=== PATIENT | female | born 1970 | race Caucasian/White ===

== ENCOUNTER 2017-01-21 08:52 | Outpatient (CLI) | payer BC ==
[~2017-01-21 08:52] MED LIST: DICLOFENAC SODI75 MG PO; NORCO1 TA2 PO
--- NOTE | 2017-01-21 10:08 | DIAGNOSTIC IMAGING REPORT ---
PROCEDURE: US SOFT TISSUE THYR/NECK/HEAD INDICATION: NECK SWELLING TECHNIQUE: Olivares scale and color Doppler sonographic images of the thyroid gland were obtained. COMPARISON: None. FINDINGS: RIGHT LOBE: Measures 6.3 x 3.4 x 3.6 cm. It is inhomogeneous and hyperemic. No focal nodules. LEFT LOBE: Measures 5.9 x 2.8 x 3 cm. It is inhomogeneous and hyperemic. No focal nodules. ISTHMUS: Measures 1 cm in diameter. IMPRESSION: 1. Enlarged heterogeneous thyroid gland with hyperemia suggestive of thyroiditis. 2. Results discussed with Blayne Valderrama
== END 2017-01-21 23:00 ==
LOC: US SRH 08:52
DX: E07.9 Disorder of thyroid, unspecified (principal)

== ENCOUNTER 2017-06-04 16:59 | Emergency (ER) | payer BC ==
--- NOTE | 2017-06-04 17:40 | DIAGNOSTIC IMAGING REPORT ---
PROCEDURE: XR SOFT TISSUE NECK INDICATION: PAIN TECHNIQUE: Two views of the neck for soft tissues. COMPARISON: None. FINDINGS: Soft tissue swelling in the region of the thyroid. Epiglottis appears normal. The adenoids and tonsils appear normal. Patent airway. Trachea appears midline. No unusual radiodensities. The visible cervical spine appears intact with mild degenerative changes. IMPRESSION: 1. Soft tissue swelling in the region of the thyroid.
--- NOTE | 2017-06-04 18:18 | DIAGNOSTIC IMAGING REPORT ---
PROCEDURE: US SOFT TISSUE THYR/NECK/HEAD INDICATION: Enlarged thyroid. Reported history of thyroiditis. Difficulty breathing. TECHNIQUE: Olivares scale and color Doppler sonographic images of the thyroid gland were obtained. COMPARISON: Comparison made to thyroid ultrasound on 01/21/2017. And a findings of colon FINDINGS: RIGHT LOBE: There is persistent marked enlargement of the right lobe of the thyroid gland (6.3 x 3.6 x 3.2 cm) with heterogeneous appearance and increased vascularity. LEFT LOBE: There is persistent marked enlargement of the left lobe of thyroid gland (5.6 x 2.5 x 2.7 cm) with heterogeneous appearance and increased vascularity. ISTHMUS: Marked enlargement of the isthmus (0.9 cm). IMPRESSION: 1. No significant change in marked enlargement of the thyroid gland with increased vascularity. Findings are most compatible with thyroiditis (appears chronic). 2. Findings discussed with LUCY Polk.
--- NOTE | 2017-06-04 19:29 | DIAGNOSTIC IMAGING REPORT ---
PROCEDURE: CT SOFT TISSUE NECK WITH CONT INDICATION: Pain and difficulty breathing. TECHNIQUE: 125 ml of Isovue 300 injected intravenously and axial images were obtained from the skull base through the upper mediastinum with sagittal and coronal reformations. In addition, angled axial oblique images were obtained (avoiding dental hardware). COMPARISON: Ultrasound soft tissue neck 06/04/2017. FINDINGS: Enlarged right thyroid lobe (5.8 x 4.3 x 2.7 cm) and left thyroid lobe (6.2 x 3.9 x 2.3 cm). Thyroid gland is heterogeneous with calcified nodules in the thyroid isthmus and left lobe. Normal airway without narrowing. Parotid and submandibular glands are normal. No adenopathy. Lung apices are clear. Mastoids and visualized moderate degenerative changes of the spine. paranasal sinuses are clear. IMPRESSION: 1. Goiter 2. Normal airway 3. Results discussed with LUCY Aguilar All CT scans at this facility use dose modulation, iterative reconstruction, and/or weight-based dosing when appropriate to reduce radiation dose to as low as reasonably achievable.
--- NOTE | 2017-06-04 19:34 | ED ORDER SUMMARY ---
..... Patient: KATERINA LARA OrderSheet [facility] VisitID: [id number] [place] [address] 47y, F Registration Date/Time: 06/04/2017 ORDER SHEET Weight: 81.6 kg (stated) Allergies: None GENERAL ORDERS: US Soft Tissue Thyroid/Neck/Head Urgent (17:15 06/04/2017 EKoroleva P.A.-C) (Ack 17:38 OHeitannandez) (18:46 KPage-Kuchan R.N.) Soft Tissue Neck Urgent (17:15 06/04/2017 EKoroleva P.A.-C) (Ack 17:38 OHeitannandez) (18:46 KPage-Kuchan R.N.) - (t3) (18:05 06/04/2017 EKoroleva P.A.-C) (18:21 JBoardley R.N.) (Cancelled: Other18:23 EKoroleva P.A.-C) CBC w Diff Urgent (18:05 06/04/2017 EKoroleva P.A.-C) (Ack 18:07 Erikanandez) (18:21 JBoardley R.N.) TSH Urgent (18:05 06/04/2017 EKoroleva P.A.-C) (Ack 18:07 Erikanandez) (18:21 JBoardley R.N.) CT Soft Tissue Neck w Cont (No) (see lab) Urgent (18:12 06/04/2017 EKoroleva P.A.-C) (Ack 18:24 Erikanandez) (19:30 MCampbell) FT4(Free T4) Urgent (18:23 06/04/2017 EKoroleva P.A.-C) (Ack 18:24 OHeitannandez) (18:28 JBoardley R.N.) Vitals (18:32 06/04/2017 EKoroleva P.A.-C) (18:33 KPage-Kuchan R.N.) Monoscreen Urgent (18:32 06/04/2017 EKoroleva P.A.-C) (Ack 18:42 OHvalentino) Vitals (18:34 06/04/2017 Larry Romero) (18:43 Lori Dhaliwal) MEDICATION ORDERS: IV FLUIDS: IV Saline Lock (18:21 06/04/2017 Jose R Dhaliwal verbal order read back to Larry Romero) (18:26 Jose R Dhaliwal) ORDER SHEET NOTES: [Electronically signed by Marilyn Marina P.A.-C (20:03 06/04/2017)] [Electronically signed by Larissa Maciel R.N. (07:23 06/06/2017)] [Electronically locked/signed by Larissa Maciel R.N. (07:23 06/06/2017)]
--- NOTE | 2017-06-04 19:34 | ED NURSING NOTES ---
Clinical Report - Nurses [facility] [address] [place] [address] 06/04/2017 17:01 Patient: KATERINA LARA TRIAGE Triage time 17:Jun 04 2017. Chief Complaint: SORE THROAT and (pt with known goiters, scheduled for US tomorrow per Dr Baer- has increased swelling to right side of neck/throat making it difficult to swallow , pt speaking full clear sentences, clears oral secretions). Alert. No acute distress. SEPSIS SCREEN: Sepsis Screen. Negative (no infection suspected/documented). --17:08 Larissa Maciel R.N. 17:04 06/04/17. BP: 129/87. HR: 77. RR: 17. O2 saturation: 99%. Temp: 98.4 F. Pain level now: 06/09. --17:08 Larissa Maciel R.N. Weight: 81.6 kg stated. Height/Length: 68 inches Per Patient. BMI: 27.4. --17:06 Larissa Maciel R.N. Medications Vicodin Oral. --17:06 Larissa Maciel R.N. Levothyroxine Sodium Oral (Tablet 125 mcg), daily. --18:04 Larissa Maciel R.N. Medication/allergy information source: the patient. --17:08 Larissa Maciel R.N. Allergies None. --17:06 Larissa Maciel R.N. History Arrived by private vehicle. Historian: patient. Onset. (ongoing x 4 months). She has had a headache. 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 (vicodin). PAST MEDICAL HX: Immunizations: up-to-date. Last normal menstrual period- May. SOCIAL HX: Smoker- current status unknown (cigarette). No alcohol use or drug use. No infectious disease exposure. ABUSE ASSESSMENT: No report of abuse. SELF HARM ASSESSMENT: A self harm assessment was performed. The patient answered "no" to the question "Do you have thoughts of harming or killing yourself?". FALL RISK ASSESSMENT: Fall risk assessment completed. No fall risk identified. NUTRITIONAL RISK ASSESSMENT: The nutritional risk assessment revealed no deficiencies. FUNCTIONAL ASSESSMENT: Functional assessment: no impairments noted. LEARNING NEEDS ASSESSMENT: The learning needs assessment revealed no barriers. SKIN INTEGRITY ASSESSMENT: Skin integrity risk assessment completed. No skin integrity risk identified. --17:08 Larissa Maciel R.N. PROBLEMS: Hypokalemia. Sciatica. Back Pain. Hypovolemia. Syncope. Colitis. Vaginal Bleeding. Immunizations. LNMP - Last Normal Menstrual Period. --17:06 Larissa Maciel R.N. ADDITIONAL SURGERIES: Appendectomy. . Dilatation & Curettage. Tonsillectomy. --17:06 Larissa Maciel R.N. Interventions ID band on patient. To treatment room. --17:08 Larissa Maciel R.N. PHYSICAL ASSESSMENT Ambulatory to room. Patient gowned. GENERAL / NEURO / PSYCH: Alert. Oriented X 4. Appears in no acute distress. HEENT: Pupils equal, round and reactive to light. Mouth within normal limits upon inspection. Changed voice (pt reports voice is "hoarse" x 2 days). Mucous membranes are pink. RESPIRATORY: Respirations not labored. CVS: Capillary refill less than 2 seconds. SKIN: Skin is warm and dry. Normal skin turgor. --17:09 Larissa Maciel R.N. NURSING PROGRESS NOTES Reassurance given. Patient identifiers checked. Call light placed in reach. Side rails up x 1. Bed placed in lowest position. Brakes of bed on. Patient ready for evaluation- chart flagged. Patient waiting for evaluation. --17:09 Larissa Maciel R.N. ( rec fax from [facility] med list, levothyroxine added to pts meds). --18:05 Larissa Maciel R.N. 18:16 06/04/2017 Site #1 started via IV in the right antecubital space with an 20g angiocath, with aseptic technique and good blood return; one attempt. Blood drawn: rainbow set. Labeled in the presence of the patient. Saline lock flushed with 10 mL saline. --18:26 Navi Sethi R.N. 18:26 06/04/17. Patient refused to place gown on. --18:26 Navi Sethi R.N. 18:29 06/04/17. Patient and family informed about reason for wait and about plan of care. --18:29 Navi Sethi R.N. 18:36 06/04/17. BP: 111/68. HR: 67. RR: 17. O2 saturation: 99% on room air. --18:36 Larissa Maciel R.N. ( pt up in room talking on cell phone, has swab to moisten oral cavity- pt placed in gown and ready for ct). --18:45 Larissa Maciel R.N. DISPOSITION / DISCHARGE 19:42 06/04/2017 Site #1 removed upon discharge. Bandaid applied. --19:47 Larissa Maciel R.N. No learning barriers present. Discharge instructions provided and reviewed with the patient. Reviewed referral to an ear, nose, and throat specialist (food order expediter) (per NICOL). Patient verbalized understanding. Written instructions provided in Hebrew. The patient was discharged by the physician switchboard operator assistant. She was discharged home. She left the Emergency Department ambulatory and via private vehicle. ( pt dc home speaks full clear sentences, clears oral secretions, ambulated to lobby with steady gait). --19:48 Larissa Maciel R.N. 19:46 06/04/17. BP: 124/87. HR: 71. RR: 17. O2 saturation: 98%. Temp: deferred. Pain level now: 02/07. --19:48 Larissa Maciel R.N. Locked/Released at 06/06/2017 7:23 by Larissa Maciel R.N.
--- NOTE | 2017-06-04 19:34 | ED NURSING NOTES ---
Clinical Report - Nurses [facility] [address] [place] [address] 06/04/2017 17:01 Patient: KATERINA LARA TRIAGE Triage time 17:Jun 04 2017. Chief Complaint: SORE THROAT and (pt with known goiters, scheduled for US tomorrow per Dr Baer- has increased swelling to right side of neck/throat making it difficult to swallow , pt speaking full clear sentences, clears oral secretions). Alert. No acute distress. SEPSIS SCREEN: Sepsis Screen. Negative (no infection suspected/documented). --17:08 Larissa Maciel R.N. 17:04 06/04/17. BP: 129/87. HR: 77. RR: 17. O2 saturation: 99%. Temp: 98.4 F. Pain level now: 06/09. --17:08 Larissa Maciel R.N. Weight: 81.6 kg stated. Height/Length: 68 inches Per Patient. BMI: 27.4. --17:06 Larissa Maciel R.N. Medications Vicodin Oral. --17:06 Larissa Maciel R.N. Levothyroxine Sodium Oral (Tablet 125 mcg), daily. --18:04 Larissa Maciel R.N. Medication/allergy information source: the patient. --17:08 Larissa Maciel R.N. Allergies None. --17:06 Larissa Maciel R.N. History Arrived by private vehicle. Historian: patient. Onset. (ongoing x 4 months). She has had a headache. 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 (vicodin). PAST MEDICAL HX: Immunizations: up-to-date. Last normal menstrual period- May. SOCIAL HX: Smoker- current status unknown (cigarette). No alcohol use or drug use. No infectious disease exposure. ABUSE ASSESSMENT: No report of abuse. SELF HARM ASSESSMENT: A self harm assessment was performed. The patient answered "no" to the question "Do you have thoughts of harming or killing yourself?". FALL RISK ASSESSMENT: Fall risk assessment completed. No fall risk identified. NUTRITIONAL RISK ASSESSMENT: The nutritional risk assessment revealed no deficiencies. FUNCTIONAL ASSESSMENT: Functional assessment: no impairments noted. LEARNING NEEDS ASSESSMENT: The learning needs assessment revealed no barriers. SKIN INTEGRITY ASSESSMENT: Skin integrity risk assessment completed. No skin integrity risk identified. --17:08 Larissa Maciel R.N. PROBLEMS: Hypokalemia. Sciatica. Back Pain. Hypovolemia. Syncope. Colitis. Vaginal Bleeding. Immunizations. LNMP - Last Normal Menstrual Period. --17:06 Larissa Maciel R.N. ADDITIONAL SURGERIES: Appendectomy. . Dilatation & Curettage. Tonsillectomy. --17:06 Larissa Maciel R.N. Interventions ID band on patient. To treatment room. --17:08 Larissa Maciel R.N. PHYSICAL ASSESSMENT Ambulatory to room. Patient gowned. GENERAL / NEURO / PSYCH: Alert. Oriented X 4. Appears in no acute distress. HEENT: Pupils equal, round and reactive to light. Mouth within normal limits upon inspection. Changed voice (pt reports voice is "hoarse" x 2 days). Mucous membranes are pink. RESPIRATORY: Respirations not labored. CVS: Capillary refill less than 2 seconds. SKIN: Skin is warm and dry. Normal skin turgor. --17:09 Larissa Maciel R.N. NURSING PROGRESS NOTES Reassurance given. Patient identifiers checked. Call light placed in reach. Side rails up x 1. Bed placed in lowest position. Brakes of bed on. Patient ready for evaluation- chart flagged. Patient waiting for evaluation. --17:09 Larissa Maciel R.N. ( rec fax from [facility] pharmacy med list, levothyroxine added to pts meds). --18:05 Larissa Maciel R.N. 18:16 06/04/2017 Site #1 started via IV in the right antecubital space with an 20g angiocath, with aseptic technique and good blood return; one attempt. Blood drawn: rainbow set. Labeled in the presence of the patient. Saline lock flushed with 10 mL saline. --18:26 Navi Sethi R.N. 18:26 06/04/17. Patient refused to place gown on. --18:26 Navi Sethi R.N. 18:29 06/04/17. Patient and family informed about reason for wait and about plan of care. --18:29 Navi Sethi R.N. 18:36 06/04/17. BP: 111/68. HR: 67. RR: 17. O2 saturation: 99% on room air. --18:36 Larissa Maciel R.N. ( pt up in room talking on cell phone, has swab to moisten oral cavity- pt placed in gown and ready for ct). --18:45 Larissa Maciel R.N. DISPOSITION / DISCHARGE 19:42 06/04/2017 Site #1 removed upon discharge. Bandaid applied. --19:47 Larissa Maciel R.N. No learning barriers present. Discharge instructions provided and reviewed with the patient. Reviewed referral to an ear, nose, and throat specialist (form layer) (per NICOL). Patient verbalized understanding. Written instructions provided in Slovenian. The patient was discharged by the physician administrative personal assistant. She was discharged home. She left the Emergency Department ambulatory and via private vehicle. ( pt dc home speaks full clear sentences, clears oral secretions, ambulated to lobby with steady gait). --19:48 Larissa Maciel R.N. 19:46 06/04/17. BP: 124/87. HR: 71. RR: 17. O2 saturation: 98%. Temp: deferred. Pain level now: 02/07. --19:48 Larissa Maciel R.N. Locked/Released at 06/06/2017 7:23 by Larissa Maciel R.N.
--- NOTE | 2017-06-04 19:34 | ED ORDER SUMMARY ---
..... Patient: KATERINA LARA OrderSheet [facility] VisitID: [id number] [place] [address] 47y, F Registration Date/Time: 06/04/2017 ORDER SHEET Weight: 81.6 kg (stated) Allergies: None GENERAL ORDERS: US Soft Tissue Thyroid/Neck/Head Urgent (17:15 06/04/2017 EKoroleva P.A.-C) (Ack 17:38 OHeitannandez) (18:46 KPage-Kuchan R.N.) Soft Tissue Neck Urgent (17:15 06/04/2017 EKoroleva P.A.-C) (Ack 17:38 OHeitannandez) (18:46 KPage-Kuchan R.N.) - (t3) (18:05 06/04/2017 EKoroleva P.A.-C) (18:21 JBoardley R.N.) (Cancelled: Other18:23 EKoroleva P.A.-C) CBC w Diff Urgent (18:05 06/04/2017 EKoroleva P.A.-C) (Ack 18:07 Erikanandez) (18:21 JBoardley R.N.) TSH Urgent (18:05 06/04/2017 EKoroleva P.A.-C) (Ack 18:07 Erikanandez) (18:21 JBoardley R.N.) CT Soft Tissue Neck w Cont (No) (see lab) Urgent (18:12 06/04/2017 EKoroleva P.A.-C) (Ack 18:24 Erikanandez) (19:30 MCampbell) FT4(Free T4) Urgent (18:23 06/04/2017 EKoroleva P.A.-C) (Ack 18:24 OHeitannandez) (18:28 JBoardley R.N.) Vitals (18:32 06/04/2017 EKoroleva P.A.-C) (18:33 KPage-Kuchan R.N.) Monoscreen Urgent (18:32 06/04/2017 EKoroleva P.A.-C) (Ack 18:42 OHvalentino) Vitals (18:34 06/04/2017 Larry Romero) (18:43 Lori Dhaliwal) MEDICATION ORDERS: IV FLUIDS: IV Saline Lock (18:21 06/04/2017 Jose R Dhaliwal verbal order read back to Larry Romero) (18:26 Jose R Dhaliwal) ORDER SHEET NOTES: [Electronically signed by Marilyn Marina P.A.-C (20:03 06/04/2017)] [Electronically signed by Larissa Maciel R.N. (07:23 06/06/2017)] [Electronically locked/signed by Larissa Maciel R.N. (07:23 06/06/2017)]
--- NOTE | 2017-06-04 19:34 | ED CLINICAL REPORT ---
Clinical Report - Physicians/Mid Levels [facility] [address] [place] [address] 06/04/2017 17:01 Patient: KATERINA LARA Time Seen: 17:05 Jun 04 2017. Arrived- By private vehicle. Historian- patient. HISTORY OF PRESENT ILLNESS Chief Complaint: diff breathing. This started just prior to arrival and is still present. Pain described as mild. No sore throat, mouth sores, nasal discharge or swollen jaw or face. (Patient with thyroid swelling over the last 4 months, has been treated by a medication, worsening of swelling, now with difficulty breathing and airway. Sensation of dysphagia. No fevers. NO cough. NO recent illness exposure such as mono/ strep.). REVIEW OF SYSTEMS No fever, difficulty breathing, nausea, diarrhea or abdominal pain. No headache, fainting episodes, skin rash or enlarged lymph nodes. All systems otherwise negative, except as recorded above. PAST HISTORY Problems: Hypokalemia. Sciatica. Back Pain. Hypovolemia. Syncope. Colitis. Vaginal Bleeding. Immunizations. LNMP - Last Normal Menstrual Period. Additional Surgeries: Appendectomy. . Dilatation & Curettage. Tonsillectomy. Medications: Levothyroxine Sodium Oral (Tablet 125 mcg), daily. Vicodin Oral. Allergies: None. SOCIAL HISTORY Current every day smoker. No alcohol use or drug use. ADDITIONAL NOTES The nursing notes have been reviewed. PHYSICAL EXAM Vital Signs: 06/04/2017 17:04 BP: 129/87. HR: 77. RR: 17. O2 saturation: 99%. Temp: 98.4 F. Pain level now: 7/10. Appearance: Alert. Head: Normal external inspection. ENT: Ears normal. Nose normal. Pharynx normal. Lips normal. Gums normal. No trismus present. Uvula midline. No peritonsillar mass, dental tenderness, trismus or purulent nasal discharge. Normal ear exam. Neck: Thyromegaly. Neck supple. Moderate soft tissue tenderness in the right upper, mid and lower neck area and upper and mid central neck area. No lymphadenopathy. CVS: Heart sounds normal. Pulses normal. Respiratory: No respiratory distress. Abdomen: Soft. Skin: Normal skin color. No rash. No skin rash. Neuro: Oriented X 3. LABS, X-RAYS, AND EKG Laboratory Tests: CBC w Diff: (MARIA LUISA: 06/04/2017 18:20) ( [facility] 06/04/2017 18:39) Final results Test Result Flag Units (Reference) WHITE BLOOD COUNT 9.7 K/uL (4.5-11.5) RED BLOOD COUNT 4.54 M/uL (4.00-5.20) HEMOGLOBIN 12.9 gm/dL (12.0-16.0) HEMATOCRIT 38.6 % (36.0-46.0) MEAN CELL VOLUME 85 fL (80-100) MEAN CORPUSCULAR HGB 28 pg (26-34) MEAN CORPUSCULAR HGB CONC 33 g/dL (31-37) RED CELL DISTRIBUTION WIDTH 15.8 H % (11.6-14.8) PLATELET COUNT 326 K/uL (150-400) NEUTROPHIL % 52.1 % (50-75) LYMPH % 35.1 % (25-40) MONO % 9.2 % (3-14) EOSINOPHIL % 3.3 % (0-4) BASOPHIL % 0.3 % (0-2) [id number]: (MARIA LUISA: 06/04/2017 18:20) ( [facility] 06/04/2017 18:52) Final results Test Result Flag Units (Reference) FREE T4 (FREE THYROXINE) 1.31 ng/dL (0.78-4.13) TSH: (MARIA LUISA: 06/04/2017 18:20) ( [facility] 06/04/2017 18:58) Final results Test Result Flag Units (Reference) THYROID STIMULATING HORMONE 14.716 H uIU/mL (0.34-3.74) . Note - Tests: (XR neck soft tissue: IMPRESSION: 1. Soft tissue swelling in the region of the thyroid Electronically Final signed by:Edwardo Wise MD 06/04/2017 5:41:09 PM US NECK: IMPRESSION: 1. No significant change in marked enlargement of the thyroid gland with increased vascularity. Findings are most compatible with thyroiditis (appears chronic). 2. Findings discussed with LUCY Polk. Electronically Final signed by:Nir Rudolph MD 06/04/2017 6:13:[address] neck soft tissue w/ contrast: IMPRESSION: 1. Goiter 2. Normal airway 3. Results discussed with LUCY Aguilar All CT scans at this facility use dose modulation, iterative reconstruction, and/or weight-based dosing when appropriate to reduce radiation dose to as low as reasonably achievable. Electronically Final signed by:Mono Betancur MD 06/04/2017 7:28:39 PM). PROGRESS AND PROCEDURES Course of Care: patient in the emergency room with no signs of any acute distress, able to tolerate eating, drinking as well as breathing well. Patient with no signs of airway impingement by the thyroid mass. Patient urged to follow-up with specialist. Ultrasound as above. No signs of infectious process. 06/04/2017 18:36 BP: 111/68. HR: 67. RR: 17. O2 saturation: 99%. Patient is stable. Physical exam findings are unchanged. Symptoms better. Patient/family counseled. Disposition: Discharged. CLINICAL IMPRESSION Acute right otalgia. Thyroid disease- multinodular nontoxic goiter. INSTRUCTIONS (follow up with ENDOCRINOLOGY: [id number] or from PCP referral). Follow-up with: John Chaudhry MD, ENT, , [address], , [place], [id number] (Electronically signed by Marilyn Marina P.A.-C 06/04/2017 20:03)
--- NOTE | 2017-06-04 19:34 | ED CLINICAL REPORT ---
Clinical Report - Physicians/Mid Levels [facility] [address] [place] [address] 06/04/2017 17:01 Patient: KATERINA LARA Time Seen: 17:05 Jun 04 2017. Arrived- By private vehicle. Historian- patient. HISTORY OF PRESENT ILLNESS Chief Complaint: diff breathing. This started just prior to arrival and is still present. Pain described as mild. No sore throat, mouth sores, nasal discharge or swollen jaw or face. (Patient with thyroid swelling over the last 4 months, has been treated by a medication, worsening of swelling, now with difficulty breathing and airway. Sensation of dysphagia. No fevers. NO cough. NO recent illness exposure such as mono/ strep.). REVIEW OF SYSTEMS No fever, difficulty breathing, nausea, diarrhea or abdominal pain. No headache, fainting episodes, skin rash or enlarged lymph nodes. All systems otherwise negative, except as recorded above. PAST HISTORY Problems: Hypokalemia. Sciatica. Back Pain. Hypovolemia. Syncope. Colitis. Vaginal Bleeding. Immunizations. LNMP - Last Normal Menstrual Period. Additional Surgeries: Appendectomy. . Dilatation & Curettage. Tonsillectomy. Medications: Levothyroxine Sodium Oral (Tablet 125 mcg), daily. Vicodin Oral. Allergies: None. SOCIAL HISTORY Current every day smoker. No alcohol use or drug use. ADDITIONAL NOTES The nursing notes have been reviewed. PHYSICAL EXAM Vital Signs: 06/04/2017 17:04 BP: 129/87. HR: 77. RR: 17. O2 saturation: 99%. Temp: 98.4 F. Pain level now: 7/10. Appearance: Alert. Head: Normal external inspection. ENT: Ears normal. Nose normal. Pharynx normal. Lips normal. Gums normal. No trismus present. Uvula midline. No peritonsillar mass, dental tenderness, trismus or purulent nasal discharge. Normal ear exam. Neck: Thyromegaly. Neck supple. Moderate soft tissue tenderness in the right upper, mid and lower neck area and upper and mid central neck area. No lymphadenopathy. CVS: Heart sounds normal. Pulses normal. Respiratory: No respiratory distress. Abdomen: Soft. Skin: Normal skin color. No rash. No skin rash. Neuro: Oriented X 3. LABS, X-RAYS, AND EKG Laboratory Tests: CBC w Diff: (MARIA LUISA: 06/04/2017 18:20) ( [facility] 06/04/2017 18:39) Final results Test Result Flag Units (Reference) WHITE BLOOD COUNT 9.7 K/uL (4.5-11.5) RED BLOOD COUNT 4.54 M/uL (4.00-5.20) HEMOGLOBIN 12.9 gm/dL (12.0-16.0) HEMATOCRIT 38.6 % (36.0-46.0) MEAN CELL VOLUME 85 fL (80-100) MEAN CORPUSCULAR HGB 28 pg (26-34) MEAN CORPUSCULAR HGB CONC 33 g/dL (31-37) RED CELL DISTRIBUTION WIDTH 15.8 H % (11.6-14.8) PLATELET COUNT 326 K/uL (150-400) NEUTROPHIL % 52.1 % (50-75) LYMPH % 35.1 % (25-40) MONO % 9.2 % (3-14) EOSINOPHIL % 3.3 % (0-4) BASOPHIL % 0.3 % (0-2) [id number]: (MARIA LUISA: 06/04/2017 18:20) ( [facility] 06/04/2017 18:52) Final results Test Result Flag Units (Reference) FREE T4 (FREE THYROXINE) 1.31 ng/dL (0.78-4.13) TSH: (MARIA LUISA: 06/04/2017 18:20) ( [facility] 06/04/2017 18:58) Final results Test Result Flag Units (Reference) THYROID STIMULATING HORMONE 14.716 H uIU/mL (0.34-3.74) . Note - Tests: (XR neck soft tissue: IMPRESSION: 1. Soft tissue swelling in the region of the thyroid Electronically Final signed by:Edwardo Wise MD 06/04/2017 5:41:09 PM US NECK: IMPRESSION: 1. No significant change in marked enlargement of the thyroid gland with increased vascularity. Findings are most compatible with thyroiditis (appears chronic). 2. Findings discussed with LUCY Polk. Electronically Final signed by:Nir Rudolph MD 06/04/2017 6:13:[address] neck soft tissue w/ contrast: IMPRESSION: 1. Goiter 2. Normal airway 3. Results discussed with LUCY Aguilar All CT scans at this facility use dose modulation, iterative reconstruction, and/or weight-based dosing when appropriate to reduce radiation dose to as low as reasonably achievable. Electronically Final signed by:Mono Betancur MD 06/04/2017 7:28:39 PM). PROGRESS AND PROCEDURES Course of Care: patient in the emergency room with no signs of any acute distress, able to tolerate eating, drinking as well as breathing well. Patient with no signs of airway impingement by the thyroid mass. Patient urged to follow-up with specialist. Ultrasound as above. No signs of infectious process. 06/04/2017 18:36 BP: 111/68. HR: 67. RR: 17. O2 saturation: 99%. Patient is stable. Physical exam findings are unchanged. Symptoms better. Patient/family counseled. Disposition: Discharged. CLINICAL IMPRESSION Acute right otalgia. Thyroid disease- multinodular nontoxic goiter. INSTRUCTIONS (follow up with ENDOCRINOLOGY: [id number] or from PCP referral). Follow-up with: John Chaudhry MD, ENT, , [address], , [place], [id number] (Electronically signed by Marilyn Marina P.A.-C 06/04/2017 20:03)
--- NOTE | 2017-06-06 07:23 | ED MED RECONCILIATION SUMMARY ---
Patient: KATERINA LARA Medication Reconciliation Report [facility] VisitID: [id number] [address] [place] [place] [address] 47y, F Registration Date/Time: 06/04/2017 Weight: 81.6 kg Height/Length: 68 in. BMI: 27.4 ALLERGIES: None The patient's Home Medications are listed below: THE FOLLOWING MEDICATIONS NEED TO BE RECONCILED: Levothyroxine Sodium Oral (125 mcg), daily Vicodin Oral The source(s) of the original Home Medication information: patient The following Medications were given to the patient in the Emergency Department: None. The following Medications were prescribed to the patient: None.
--- NOTE | 2017-06-06 07:23 | ED MAR SUMMARY ---
..... Medication Administration Record [facility] [address] [place], [place] [id number] Patient: KATERINA LARA Visit ID: [id number] 47y, F Weight: 81.6 kg Height/Length: 68 in BMI: 27.4 ALLERGIES: None
--- NOTE | 2017-06-06 07:23 | ED MAR SUMMARY ---
..... Medication Administration Record [facility] [address] [place], [place] [id number] Patient: KATERINA LARA Visit ID: [id number] 47y, F Weight: 81.6 kg Height/Length: 68 in BMI: 27.4 ALLERGIES: None
--- NOTE | 2017-06-06 07:23 | ED DISCHARGE INSTRUCTIONS ---
Patient: KATERINA LARA General Instructions [facility] VisitID: [id number] [address] [place] [place] [address] 47y, F Registration Date/Time: 06/04/2017 Acute right otalgia. Thyroid disease- multinodular nontoxic goiter. INSTRUCTIONS (follow up with ENDOCRINOLOGY: [id number] or from PCP referral). Follow-up with: John Chaudhry MD, ENT, , [address], , [place], [id number] (Electronically signed by Marilyn Marina P.A.-C 06/04/2017 20:03)
--- NOTE | 2017-06-06 07:23 | ED MED RECONCILIATION SUMMARY ---
Patient: KATERINA LARA Medication Reconciliation Report [facility] VisitID: [id number] [address] [place] [place] [address] 47y, F Registration Date/Time: 06/04/2017 Weight: 81.6 kg Height/Length: 68 in. BMI: 27.4 ALLERGIES: None The patient's Home Medications are listed below: THE FOLLOWING MEDICATIONS NEED TO BE RECONCILED: Levothyroxine Sodium Oral (125 mcg), daily Vicodin Oral The source(s) of the original Home Medication information: patient The following Medications were given to the patient in the Emergency Department: None. The following Medications were prescribed to the patient: None.
--- NOTE | 2017-06-06 07:23 | ED DISCHARGE INSTRUCTIONS ---
Patient: KATERINA LARA General Instructions [facility] VisitID: [id number] [address] [place] [place] [address] 47y, F Registration Date/Time: 06/04/2017 Acute right otalgia. Thyroid disease- multinodular nontoxic goiter. INSTRUCTIONS (follow up with ENDOCRINOLOGY: [id number] or from PCP referral). Follow-up with: John Chaudhry MD, ENT, , [address], , [place], [id number] (Electronically signed by Marilyn Marina P.A.-C 06/04/2017 20:03)
== END 2017-06-04 19:44 | disposition home or self-care (01) ==
LOC: ED SRH 16:59
DX: E07.9 Disorder of thyroid, unspecified (principal); E04.2 Nontoxic multinodular goiter; H92.01 Otalgia, right ear; Z79.899 Other long term (current) drug therapy; F17.210 Nicotine dependence, cigarettes, uncomplicated
CPT/HCPCS: 90648; 93140; 95059; 98370